=== PATIENT | female | born 1945 | race Caucasian/White ===

== ENCOUNTER → 2016-11-29 | Outpatient (CLI) | payer OTHER | LOC: CAT 10:15 | DX: J32.0 Chronic maxillary sinusitis (principal) ==

== ENCOUNTER 2020-10-01 19:00 | Emergency (ER) | payer MEDICARE, OTHER ==
[~2020-10-01] VITALS: Ht 157.5 cm; Wt 72.6 kg
[2020-10-01 22:58] VITALS: BP 168/98
== END 2020-10-01 23:04 | disposition home or self-care (01) ==
LOC: ER 19:00
DX: S52.201A Unspecified fracture of shaft of right ulna, initial encounter for closed fracture (principal); Z88.0 Allergy status to penicillin; W19.XXXA Unspecified fall, initial encounter; Y93.89 Activity, other specified; Y92.89 Other specified places as the place of occurrence of the external cause; Y99.8 Other external cause status